=== PATIENT | male | born 1985 | race African-American/Black ===

== ENCOUNTER 2016-12-11 23:28 | Emergency (ER) | payer MEDICAID, OTHER ==
[2016-12-12] MEDS ORDERED: DEXAMETHASONE SOD PHOS INJ 10 MG/1 ML VIAL IM ONE (04:51)
[2016-12-12] MEDS ORDERED: CEPHALEXIN 500 MG CAPSULE PO ONE (04:51)
--- NOTE | 2016-12-12 04:54 | ER Document Report ---
HPI - HPI Patient complains to provider of: sore throat Pain Level: 2 Context: Patient is a 31-year-old male that comes emergency department for chief complaint of 3 days of sore throat, he states now his tender neck in the front, he states that he had a fever earlier and it broke with him sweating. Patient denies cough, abdominal pain, headache, or any other symptoms. He denies abdominal pain. He denies any daily medications. - DERM Skin Color: Normal, [place] Past Medical History - General Information source: Patient - Social History Smoking Status: Never Smoker Chew tobacco use (# tins/day): No Frequency of alcohol use: None Drug Abuse: None Lives with: Family Family History: Reviewed & Not Pertinent - Past Medical History Cardiac Medical History: Reports: Hx Hypertension - has not taken meds since 2013 Neurological Medical History: Reports: Hx Migraine Renal/ Medical History: Denies: Hx Peritoneal Dialysis Past Surgical History: Reports: Hx Appendectomy, Hx Genitourinary Surgery - Circumcised, Hx Oral Surgery - Immunizations Hx Diphtheria, Pertussis, Tetanus Vaccination: Yes Vertical Provider Document - CONSTITUTIONAL General Appearance: WD/WN, No Apparent Distress - INFECTION CONTROL TRAVEL OUTSIDE OF THE [place] IN LAST 30 DAYS: No - HEENT HEENT: Atraumatic, Normocephalic. negative: Normal ENT Exam - Exudative pharyngitis with enlarged tonsils, rash on the posterior pharynx, anterior cervical lymphadenopathy bilaterally, no airway compromise, uvular edema, or evidence of peritonsillar abscess - NECK Neck: Lymphadenopathy-Left, Lymphadenopathy-Right - RESPIRATORY Respiratory: Breath Sounds Normal, No Respiratory Distress O2 Sat by Pulse Oximetry: 98 - CARDIOVASCULAR Cardiovascular: Regular Rate, Regular Rhythm - GI/ABDOMEN Gastrointestinal: Abdomen Soft, Abdomen Non-Tender - MUSCULOSKELETAL/EXTREMETIES Musculoskeletal/Extremeties: MAEW, FROM, Non-Tender Course - Re-evaluation Re-evalutation: Exudative pharyngitis, fever, anterior cervical adenopathy, and no cough. Meets criteria for strep, patient declines testing. Treating with Keflex, dexamethasone, discussed return precautions. Patient states understanding and agreement. - Vital Signs Vital signs: Temp Pulse Resp BP Pulse Ox 98.3 F 69 16 124/64 98 12/11/16 23:55 12/11/16 23:55 12/11/16 23:55 12/11/16 23:55 12/11/16 23:55 Discharge - Discharge Clinical Impression: Exudative pharyngitis, Lymphadenopathy Condition: Stable Disposition: HOME, SELF-CARE Additional Instructions: Examination is consistent with a strep throat infection. Take the Keflex as prescribed to completion, take ibuprofen or Tylenol for fever and pain, drink plenty of fluids and rest. Follow-up with primary care. Return to emergency department for any concerning or worsening symptoms. Prescriptions: Cephalexin Monohydrate [Keflex 500 mg Capsule] 500 mg PO BID #20 capsule Forms: Return to Work Referrals: CARLITA ROSAS MD [Primary Care Provider] - Follow up as needed
[2016-12-12 05:05] VITALS: BP 126/64
== END 2016-12-12 05:08 | disposition home or self-care (01) ==
LOC: ER 23:28
DX: J02.9 Acute pharyngitis, unspecified (principal); R59.0 Localized enlarged lymph nodes; R21 Rash and other nonspecific skin eruption; J35.1 Hypertrophy of tonsils; I10 Essential (primary) hypertension; R50.9 Fever, unspecified
CPT/HCPCS: 99282; 96372; J1100